=== PATIENT | male | born 1990 | race Caucasian/White ===

== ENCOUNTER 2022-12-14 23:58 | Emergency (ER) | payer OTHER, BC ==
[2022-12-15] MEDS ORDERED: Morphine 4 MG/ML VIAL ONE ×2 (01:51→03:29)
[2022-12-15] MEDS ORDERED: Ondansetron PF 4 MG/2 ML Vial ONE (01:51)
== END 2022-12-15 05:15 | disposition home or self-care (01) ==
LOC: CSHERS 23:58
DX: S82.831A Other fracture of upper and lower end of right fibula, initial encounter for closed fracture (principal); S00.83XA Contusion of other part of head, initial encounter; Y04.0XXA Assault by unarmed brawl or fight, initial encounter
CPT/HCPCS: 27840; 70450; 70486; 72125; 96374; 96375; 96376; J2270; J2405

== ENCOUNTER 2023-05-26 18:32 | Emergency (ER) | payer OTHER | END 2023-05-26 19:14 | disposition home or self-care (01) | LOC: CSHERS 18:32 | DX: K08.89 Other specified disorders of teeth and supporting structures (principal) | CPT/HCPCS: 99282 ==